=== PATIENT | female | born 1970 | race Caucasian/White ===

== ENCOUNTER 2020-12-18 04:48 | Emergency (ER) | payer SELFPAY ==
[2020-12-18] MEDS ORDERED: Sodium Chloride 0.9% 1,000 ML IV ONE (05:26)
[2020-12-18] MEDS ORDERED: Ketorolac 30 MG/ML SDV IM ONE (06:05)
--- NOTE | 2020-12-18 06:12 | EDM.PDOC ---
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 including every other weekend, including this weekend worked yesterday, took Tyl XS for her back, ibuprofen causes GI upset MPMP neg there was discussion of using Cymbalta (for mood and pain) and gabapentin in the past, altho standard anti-inflammatories should work well PMH: anxiety and depression meds: none except APAP prn as above Lower back Pain Score (Numeric/FACES): 10 - Related Data Allergies Allergy/AdvReac Type Severity Reaction Status Date / Time Sulfa (Sulfonamide Allergy Hives Verified 12/18/20 04:56 Antibiotics) Home Meds: Home Meds Meloxicam 15 mg PO DAILY #30 tablet 12/18/20 [Rx] ED ROS GENERAL - Review of Systems Review Of Systems: See Below Constitutional: Reports: No Symptoms HEENT: Reports: No Symptoms Respiratory: Reports: No Symptoms Cardiovascular: Reports: No Symptoms Endocrine: Reports: No Symptoms GI/Abdominal: Reports: No Symptoms : Reports: No Symptoms Musculoskeletal: Reports: Back Pain Skin: Reports: No Symptoms Neurological: Reports: No Symptoms Psychiatric: Reports: No Symptoms Hematologic/Lymphatic: Reports: No Symptoms Immunologic: Reports: No Symptoms ED EXAM,LOWER BACK PAIN/INJURY - Physical Exam Exam: See Below Exam Limited By: No Limitations General Appearance: Alert, WD/WN, No Apparent Distress Back Exam: Other (back walks stiffly leaning forward, mild to mod discomfort, 1+ tender at L iliac crest, slight tender L SIJ, no spasm, SLR 85 degrees) Course - Vital Signs Last Recorded V/S: Last Vital Signs Temp 36.4 C 12/18/20 04:53 Pulse 83 12/18/20 04:53 Resp 18 12/18/20 04:53 BP 109/87 12/18/20 04:53 Pulse Ox 97 11/04/21 04:53 - Orders/Labs/Meds Meds: Medications Discontinued Medications Generic Name Dose Route Start Last Admin Trade Name Dolores PREneida Reason Stop Dose Admin Sodium Chloride 1,000 mls @ 999 mls/hr 12/18/20 05:26 Normal Saline IV 12/18/20 06:26 .BOLUS ONE - Re-Assessments/Exams Free Text/Narrative Re-Assessment/Exam: 12/18/20 06:24 L-spine nontender, pain is L iliac crest and L hip, not down leg, very flexible hx and exam c/w mechanical muscles/ligament strain no injury now or in past Departure - Departure Time of Disposition: 06:18 Disposition: Home, Self-Care 01 Condition: Good Clinical Impression: Mechanical low back pain - Discharge Information *PRESCRIPTION DRUG MONITORING PROGRAM REVIEWED*: Not Applicable *COPY OF PRESCRIPTION DRUG MONITORING REPORT IN PATIENT CAL: Not Applicable Prescriptions: Meloxicam 15 mg PO DAILY #30 tablet Instructions: Back Injury Prevention, [id number], Muscle Strain, [id number] Referrals: PCP,None [Primary Care Provider] - Forms: ED Department Discharge, ED Return to Work/School Form Additional Instructions: Use heat for 10 minutes 4 times a day for 2 days, longer if needed. For pain and inflammation, take acetaminophen 500 mg 2 tabs 3 times a day for 10 days (which is a more inexpensive than the long acting acetaminophen). As an alternative, take the acetaminophen extended release 650 mg 2 tabs 3 times a day for 10 days. For pain and inflammation, take meloxicam 15 mg 1 tab daily for 10 days. Take with food. You can take the acetaminophen and meloxicam longer than 10 days, if needed. When you go to the [facility] pharmacy in [place], you can save money on the prescription for meloxicam by using the [employer] website on your iphone. Call up [employer], type in the medication "meloxicam" and show the pharmacist the discount number that will show up on your phone. See a PCP next week for further instructions. Sepsis Event Note (ED) - Evaluation Sepsis Screening Result: No Definite Risk - Focused Exam Vital Signs: Vital Signs Temp Pulse Resp BP Pulse Ox 12/18/20 04:53 36.4 C 83 18 109/87 97
== END 2020-12-18 06:28 | disposition home or self-care (01) ==
LOC: FB.ED 04:48
DX: M54.50 Low back pain, unspecified (principal); Z88.2 Allergy status to sulfonamides
CPT/HCPCS: 96372; 99283; J1885

== ENCOUNTER 2023-09-11 18:55 | Emergency (ER) | payer SELFPAY ==
[2023-09-11] MEDS: cefTRIAXone 500 MG Vial IM ONE (19:38)
== END 2023-09-11 20:05 | disposition home or self-care (01) ==
LOC: FB.ED 18:55
DX: L03.115 Cellulitis of right lower limb (principal); Z79.899 Other long term (current) drug therapy; Z88.2 Allergy status to sulfonamides
CPT/HCPCS: 96372; 99283; J0696